=== PATIENT | male | born 2000 | race Caucasian/White ===

== ENCOUNTER → 2021-10-12 | Outpatient (CLI) | payer BC ==
[2021-10-12 14:27] LABS: BASO % 0.4 % (0.0-2.0); EOS % 0.8 % (0.0-4.0); GRAN % 61.5 % (42.2-75.2); HEMATOCRIT 50.2 % (42.0-52.0); LYMPH # 1.4 K/mm3 (1.2-3.4); LYMPH % 28.2 % (20.0-51.0); MEAN CELL VOLUME 87 fl (80.0-100.0); MEAN CORPUSCULAR HEMOGLOBIN 29 pg (27-31); MEAN CORPUSCULAR HGB CONC 34 g/dl (33.0-37.0); MEAN PLATELET VOLUME 10.4 fl (7.4-10.4); MONO # 0.4 K/mm3 (0.1-0.6); MONO % 8.7 % (1.7-9.3); PLATELET COUNT 266 K/mm3 (130-400); RED BLOOD COUNT 5.78 M/mm3 (4.20-5.60)
[2021-10-12 14:44] LABS: ALBUMIN 4.6 gm/dL (3.5-5.0); BILIRUBIN,TOTAL 0.7 mg/dL (0.2-1.2); CALCIUM 9.5 mg/dL (8.4-10.2); CREATININE, serum 0.89 mg/dL (0.72-1.25); POTASSIUM 4.4 mmol/L (3.5-4.5); TOTAL PROTEIN 7.7 gm/dL (6.2-8.1)
[2021-10-12 14:54] LABS: HIV 1/2 Antibodies Non-Reactive; HIV-1p24 Antigen Non-Reactive
[2021-10-12 23:29] LABS: HEPATITIS B SURFACE ANTIBODY <2.0 (())
[2021-10-14 09:59] LABS: TB GOLD INTERPRETATION Negative (Negative)
== END ==
LOC: COL.LAB 12:56
DX: L40.0 Psoriasis vulgaris (principal)

== ENCOUNTER 2022-04-08 19:33 | Emergency (ER) | payer BC ==
[~2022-04-08] VITALS: Ht 177.8 cm; Wt 93.2 kg
[2022-04-08 19:33] VITALS: TEMP 97.8
[2022-04-08] MEDS ORDERED: AMOXICILLIN 8751 TAB PO (22:02)
[2022-04-08 22:15] VITALS: BP 131/77; PULSE 86
== END 2022-04-08 22:15 | disposition home or self-care (01) ==
LOC: COL.ER 19:33
DX: S06.0X9A Concussion with loss of consciousness of unspecified duration, initial encounter (principal); S02.2XXA Fracture of nasal bones, initial encounter for closed fracture; S80.212A Abrasion, left knee, initial encounter; Z28.310 Unvaccinated for COVID-19; V00.831A Fall from motorized mobility scooter, initial encounter; Y92.410 Unspecified street and highway as the place of occurrence of the external cause